=== PATIENT | male | born 1940 | race Caucasian/White ===

== ENCOUNTER 2020-04-18 08:35 | Outpatient (CLI) | payer MEDICARE, SELFPAY ==
--- NOTE | ~2020-04-18 | CT_ITS ---
EXAMINATION: CT foot RT wo con DATE: 04/18/2020 09:24 INDICATION: TECHNIQUE: High resolution computed tomography (CT) of the right foot was performed without intraveno us contrast. Automated exposure control and iterative reconstruction technique were employed. The dos e-length product was 975.02 mGy-cm. COMPARISON: None FINDINGS: Bone alignment is normal. No fracture. Minimal polyarticular osteoarthritis in the mid and forefoot. There is a mass with heterogeneous attenuation replacing the fat plantar to the base of the fifth met atarsal. The lesion which measures 2.7 cm proximal to distal, 2.6 cm medial collateral and 1.2 cm in dorsal to plantar thickness demonstrates a slightly higher attenuation peripheral rim with heterogene ous decreased central attenuation which nonetheless remains higher than simple fluid attenuation. The re is subtle irregularity to the underlying cortex which appears slightly more lucent suggesting deve loping shallow erosion with minimal adjacent periosteal reaction. No other masses or abnormal fluid c ollections identified. IMPRESSION: 1. 2.7 x 2.6 x 1.2 cm mass along the plantar base of the fifth metatarsal with subtle irregularity of the underlying cortex. It is unclear this represents a solid or complex cystic lesion with different ial including bursitis, gouty tophus, abscess, hematoma or neoplasm either benign or malignant. Could consider contrast-enhanced MRI to differentiate cystic from solid enhancing soft tissue although def initive determination may require biopsy. Reviewed, dictated and finalized at location A. IMPRESSION: 1. 2.7 x 2.6 x 1.2 cm mass along the plantar base of the fifth metatarsal with subtle irregularity of the underlying cortex. It is unclear this represents a s olid or complex cystic lesion with differential including bursitis, gouty tophu s, abscess, hematoma or neoplasm either benign or malignant. Could consider con trast-enhanced MRI to differentiate cystic from solid enhancing soft tissue alt mendel definitive determination may require biopsy.
== END 2020-04-18 08:36 | disposition home or self-care (01) ==
LOC: ANHIMG 08:44
PROVIDERS: PCP Internal Medicine; Visit Provider Podiatrist Foot & Ankle Surgery
DX: M79.89 Other specified soft tissue disorders (principal)
CPT/HCPCS: 73700

== ENCOUNTER 2020-05-01 08:50 | Outpatient (CLI) | payer MEDICARE, SELFPAY ==
--- NOTE | ~2020-05-01 | XR_ITS ---
EXAMINATION: XR hand RT min 3V DATE: 05/01/2020 09:07 INDICATION: Right hand pain. TECHNIQUE: 3 views of right hand were obtained. COMPARISON: None. FINDINGS: Scapholunate dissociation is noted. There is an old avulsion fracture of ulnar styloid with nonunion. There is mild osteoarthritis of triscaphe joint, first carpometacarpal joint, lunate-hamat e joint, first metacarpophalangeal joint, and most of the interphalangeal joints. There is severe ost eoarthritis of second and third metacarpophalangeal joints and second distal interphalangeal joint. IMPRESSION: 1. Scapholunate dissociation. 2. Polyarticular osteoarthritis. Reviewed, dictated and finalized at location A.
[2020-05-01 10:00] LABS: Uric Acid 6.8 mg/dL (3.5-8.5)
== END 2020-05-01 08:51 | disposition home or self-care (01) ==
PROVIDERS: PCP Internal Medicine; Visit Provider Internal Medicine
DX: M79.643 Pain in unspecified hand (principal); M19.041 Primary osteoarthritis, right hand; M89.9 Disorder of bone, unspecified
CPT/HCPCS: 36415; 73130; 84550

== ENCOUNTER 2020-09-28 09:05 | Outpatient (CLI) | payer MEDICARE, SELFPAY ==
--- NOTE | ~2020-09-28 | US_ITS ---
EXAMINATION: US abdomen complete EXAM DATE: 09/28/2020 10:01 INDICATION: R16.0 - Hepatomegaly, not elsewhere classified. TECHNIQUE: Multiple grayscale and Doppler images of the complete abdomen were obtained (by a technolo gist who performed the scan) and subsequently reviewed. There is no prior study for comparison. FINDINGS: There is mild abdominal aortic ectasia and scattered arterial sclerosis. Visualized portion IVC is patent. The pancreatic head and body are normal in appearance. The pancreatic tail is not visualiz ed. The liver has normal echogenicity and contour. There is a 15 cm right liver lobe exophytic mass, dif ferential diagnosis including hemangioma, adenoma, focal nodular hyperplasia, hepatocellular carcinom a, metastatic disease. There is no evidence of intrahepatic biliary duct dilation. Portal venous jeff w was seen in the hepatopedal, normal direction and has normal Doppler waveform. Common bile duct measures 9 mm, which is normal. Focal region along the posterior aspect of the gall bladder which did not appear to change on decubitus imaging, measuring about 1.3 cm in diameter by 4 mm in thickness. No pericholecystic fluid or cholelithiasis suspected. Right kidney: There is normal contour and echogenicity. It measures 9.6 x 5.4 x 5.5 centimeters. T here are no focal renal lesions identified. There is no hydronephrosis. Left kidney: There is normal contour and echogenicity. It measures 9.5 x 5.0 x 6.5 centimeters. Th ere are no focal renal lesions identified. There is no hydronephrosis. The spleen measures up to 16 cm, enlarged and also has heterogeneous echogenicity which could be due to mass or other infiltrative process such as metastatic disease or lymphoma. Infarction unlikely giv en splenomegaly rather than atrophy. IMPRESSION: 1. Large right liver lobe mass. 2. Enlarged, heterogeneous spleen suspected to have infiltrated process. 3. Small focal region of gallbladder wall thickening posteriorly, could be polyp or less likely chol angiocarcinoma. 4. Recommend CT abdomen and pelvis without and with contrast as initial workup for these findings. I left a message for Dr. 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 I alerted his office to review t his report, provided my phone number for call back with questions. Reviewed, dictated and finalized at location A. SE DRIVER IMPRESSION: 1. Large right liver lobe mass. 2. Enlarged, heterogeneous spleen suspected to have infiltrated process. 3. Small focal region of gallbladder wall thickening posteriorly, could be brittney yp or less likely cholangiocarcinoma. 4. Recommend CT abdomen and pelvis without and with contrast as initial workup for these findings. I left a message for Dr. 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 I alerted his office to review this report, provided my phone number for call back with yen vasquez.
== END 2020-09-28 09:06 | disposition home or self-care (01) ==
LOC: ANHIMG 09:07
PROVIDERS: Family Provider Internal Medicine; PCP Internal Medicine; Visit Provider Internal Medicine
DX: R16.0 Hepatomegaly, not elsewhere classified (principal); R16.1 Splenomegaly, not elsewhere classified; R93.89 Abnormal findings on diagnostic imaging of other specified body structures
CPT/HCPCS: 76700

== ENCOUNTER 2020-10-04 12:48 | Outpatient (CLI) | payer MEDICARE, SELFPAY ==
--- NOTE | ~2020-10-04 | CT_ITS ---
EXAMINATION: CT abdomen pelvis wo/w con DATE: 10/04/2020 14:01 INDICATION: Hepatomegaly TECHNIQUE: Computed tomography (CT) of the abdomen and pelvis was performed with 100 cc Omnipaque 350 intravenous contrast. Automated exposure control and iterative reconstruction technique were employe d. Exam dose: 1217.11 mGy-cm total exam DLP. COMPARISON: 09/28/2020 complete abdominal ultrasound FINDINGS: There is left basilar lower lobe atelectasis. The lung bases are otherwise clear. No pleural effusion. Normal heart size. Right atrial and ventricular leads. Coronary artery calcifications. Status post sternotomy. Multiple small dependent gallstones. No gallbladder wall thickening or pericholecystic fluid collect ion. No hepatic space occupying mass lesion. But there are very large bilateral adrenal heterogeneous mas ses, measuring up to 16 cm on the right, 11 cm on the left. The right adrenal mass would be amenable to CT guided percutaneous needle biopsy. There are multiple hepatic space occupying masses. There are peritoneal masses consistent with peritoneal carcinomatosis, including two measuring up to 2 cm in the left upper quadrant. No renal mass lesion or hydronephrosis. There is extensive calcification of the abdominal aorta and celiac and superior mesenteric arteries a nd at origins of renal arteries. There is left upper quadrant mesenteric adenopathy. Prominent degenerative changes of the thoracic and lumbar spine. IMPRESSION: Very large adrenal masses, likely metastatic; consider CT guided right adrenal biopsy Peritoneal carcinomatosis Multiple splenic masses, likely metastatic Mesenteric lymphadenopathy Cholelithiasis Reviewed, dictated and finalized at [facility]. Reviewed, dictated and finalized at location A. 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
[2020-10-04 13:47] LABS: Estimated Glomerular Filt Rate > 60
== END 2020-10-04 12:49 | disposition home or self-care (01) ==
LOC: ANHIMG 12:50
PROVIDERS: PCP Internal Medicine; Visit Provider Internal Medicine
DX: R16.0 Hepatomegaly, not elsewhere classified (principal); D73.9 Disease of spleen, unspecified; C78.6 Secondary malignant neoplasm of retroperitoneum and peritoneum; R16.1 Splenomegaly, not elsewhere classified; R59.0 Localized enlarged lymph nodes; K80.20 Calculus of gallbladder without cholecystitis without obstruction
CPT/HCPCS: 74178; Q9967

== ENCOUNTER → 2020-10-16 00:25 | Outpatient (CLI) | payer MEDICARE, SELFPAY ==
[2020-10-16 21:19] LABS: SARS-CoV-2 RNA PCR Negative
== END ==
PROVIDERS: PCP Internal Medicine; Visit Provider Internal Medicine
DX: Z01.812 Encounter for preprocedural laboratory examination (principal); Z20.822 Contact with and (suspected) exposure to COVID-19
CPT/HCPCS: C9803; U0003; U0005

== ENCOUNTER 2020-10-19 08:27 | Outpatient (CLI) | payer MEDICARE, SELFPAY ==
[2020-10-15 12:05] VITALS: BMI 25.1
[2020-10-19] VITALS (11 sets, daily range): BP systolic 104–130; BP diastolic 55–75; PULSE 65–88; RESP 18; O2SAT 99–100
--- NOTE | ~2020-10-19 | CT_ITS ---
EXAMINATION: CT biopsy abdomen percutaneous DATE: 10/19/2020 12:03 INDICATION: Bilateral adrenal, splenic and mesenteric masses concerning for metastatic disease. TECHNIQUE: The procedure including the risks and benefits was discussed with the patient. Risks discu ssed included bleeding and infection. The patient understood the risks and agreed to proceed. The sk in overlying the left thoracolumbar paraspinal region was prepped and draped in usual sterile fashion . Anesthetic was administered with 1% lidocaine subcutaneously. A 16 gauge outer needle was advance d under CT guidance to the lesion of interest. An 18 gauge core biopsy needle was then advanced into the lesion. 4 core biopsy specimens were obtained. The outer needle was removed and the entry site wa s cleaned and dressed. There were no immediate complications. The dose-length product was 160.56 mGy -cm. FINDINGS: CT images demonstrate the outer needle tip at the periphery of the a 10.3 cm left adrenal m ass. There is also marked masslike enlargement of the contralateral right adrenal gland as well as ma sses in the spleen and along the anterior small bowel mesentery in the right abdomen, all concerning for metastatic disease. IMPRESSION: 1. Successful CT-guided biopsy of a likely metastatic 10.3 cm left adrenal mass. Reviewed, dictated and finalized at location A. L DIVER IMPRESSION: 1. Successful CT-guided biopsy of a likely metastatic 10.3 cm left adrenal mass .
[2020-10-19 09:04] LABS: Basophils Absolute Auto 0.1 K/mm3 (0.0-0.1); Basophils Percent Auto 0.6 % (0.2-1.2); Eosinophils Absolute Auto 0.6 K/mm3 (0-0.3); Eosinophils Percent Auto 4.7 % (0-4.4); Hematocrit 32.1 % (42.0-52.0); Hemoglobin 10.5 g/dL (14.0-18.0); Immature Granulocyte Absolute 0.16 K/mm3 (0.00-0.031); Immature Granulocyte Percent A 1.2 % (0-0.5); Lymphocytes Absolute Auto 2.11 K/mm3 (0.9-3.2); Lymphocytes Percent Auto 15.6 % (18.3-44.2); Mean Corpuscular HGB Conc 32.7 g/dl (32-36); Mean Corpuscular Hemoglobin 28.2 pg (26-34); Mean Corpuscular Volume 86.3 fl (80-100); Mean Platelet Volume 8.5 fl (7.4-10.4); Monocytes Absolute Auto 1.4 K/mm3 (0.1-0.6); Monocytes Percent Auto 10.1 % (2.6-8.5); Neutrophils Absolute Auto 9.2 K/mm3 (1.3-6.7); Neutrophils Percent Auto 67.8 % (45.5-73.1); Platelet Count Result 295 k/mm3 (150-375); Red Blood Count 3.72 M/mm3 (4.6-6.20); Red Cell Distribution Width 15.3 % (11.5-14.5); White Blood Count 13.5 K/mm3 (4.5-10.0)
[2020-10-19 09:14] LABS: INR 1.1; Prothrombin Time 14.4 Seconds (11.1-14.7)
[2020-10-19 12:33] LABS: Glucose Point of Care 95 (65-105)
== END 2020-10-19 16:23 | disposition home or self-care (01) ==
PROVIDERS: Radiology Diagnostic Radiology; PCP Internal Medicine; Visit Provider Internal Medicine
DX: C79.72 Secondary malignant neoplasm of left adrenal gland (principal)
CPT/HCPCS: 36415; 49180; 77012; 82948; 85025; 85610; 88305; 88313; 88342

== ENCOUNTER 2021-07-12 09:13 | Emergency (ER) | payer MEDICARE, SELFPAY ==
--- NOTE | ~2021-07-12 | XR_ITS ---
XR chest 2V 07/12/2021 10:10 Indication: Generalized weakness and dizziness Procedure: 2 view chest Comparison: 10/27/2005 Findings: Status post median sternotomy for CABG. Cardiomegaly. Pacemaker leads in expected position. Elevated left diaphragm. Small left pleural effusion. Bibasilar atelectasis. Impression: 1: Bibasilar atelectasis with chronically elevated left diaphragm. 2: Small left pleural effusion. 3: Cardiomegaly. Reviewed, dictated and finalized at location A. 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 2: Small left pleural effusion. 3: Cardiomegaly.
[2021-07-12 09:26] VITALS: BP 144/77; PULSE 66; RESP 28; TEMP 36.5; O2SAT 100
[2021-07-12 09:29] VITALS: PULSE 66
--- NOTE | 2021-07-12 09:34 | ECG_ITS ---
Measurements Intervals [place] Rate: 60 P: [place]: 0 QRS: 87 QRSD: 161 T: -3 QT: 462 QTc: 462 Interpretive Statements ELECTRONIC VENTRICULAR PACEMAKER BASELINE ARTIFACT- I, III, AVL, AVF, V1, V4-V6 NO FURTHER INTERPRETATION IS POSSIBLE ATYPICAL ECG Electronically Signed On 07-12-2021 15:41:08 [employer] by Chase Morrell D.O.
[2021-07-12 09:42] LABS: Basophils Absolute Auto 0.1 K/mm3 (0.0-0.1); Basophils Percent Auto 0.7 % (0.2-1.2); Eosinophils Absolute Auto 0.2 K/mm3 (0-0.3); Hematocrit 37.4 % (42.0-52.0); Immature Granulocyte Absolute 0.46 K/mm3 (0.00-0.031); Immature Granulocyte Percent A 4.3 % (0-0.5); Lymphocytes Absolute Auto 2.07 K/mm3 (0.9-3.2); Lymphocytes Percent Auto 19.4 % (18.3-44.2); Mean Corpuscular HGB Conc 32.1 g/dl (32-36); Mean Corpuscular Hemoglobin 30.8 pg (26-34); Mean Corpuscular Volume 95.9 fl (80-100); Mean Platelet Volume 8.5 fl (7.4-10.4); Monocytes Absolute Auto 0.8 K/mm3 (0.1-0.6); Monocytes Percent Auto 7.1 % (2.6-8.5); Neutrophils Absolute Auto 7.1 K/mm3 (1.3-6.7); Neutrophils Percent Auto 66.5 % (45.5-73.1); Platelet Count Result 192 k/mm3 (150-375); White Blood Count 10.7 K/mm3 (4.5-10.0)
--- NOTE | 2021-07-12 09:47 | ED.GENADULT ---
HPI - General Adult General Chief complaint: Weakness Stated complaint: weakness Time Seen by Provider: 07/12/21 09:44 Source: patient, family and RN notes reviewed Mode of arrival: ambulatory Limitations: no limitations History of Present Illness HPI narrative: Patient presents with general weakness and hard to urinate in the last few days. Patient reports dribbling of urine. Patient denies any fever, chills, nausea, vomiting, chest pain, shortness of breath, abdominal pain. Status post immunotherapy 2 weeks ago for melanoma. Recently diagnosed of melanoma October 2020. Related Data Home Medications Medication Instructions Recorded Confirmed apixaban 5 mg tablet 5 mg PO BID 09/21/19 02/06/21 aspirin 81 mg tablet,delayed 81 mg PO DAILY 09/21/19 02/06/21 release B-complex with vitamin C 1 tablet PO DAILY 04/12/21 hydrocortisone 20 mg tablet 40 mg PO DAILY tablet 04/12/21 levothyroxine 25 mcg capsule 25 mcg PO BID cap 04/12/21 sodium chloride 1 gram tablet 3,000 mg PO DAILY tablet 04/12/21 Allergies Allergy/AdvReac Type Severity Reaction Status Date / Time No Known Allergies Allergy Mild Verified 07/12/21 09:33 Review of Systems Review of Systems: CONSTITUTIONAL: Denies fever, chills, or sweats. EYES: Denies visual changes, redness, or discharge. ENT: Denies rhinorrhea, congestion, sore throat, or otalgia. CARDIOVASCULAR: Denies chest pain, palpitations, or edema. RESPIRATORY: Denies cough or dyspnea. GASTROINTESTINAL: Denies abdominal pain, nausea, vomiting, or diarrhea. GENITOURINARY: Denies dysuria or hematuria. SKIN: Denies rash or itching. MUSCULOSKELETAL: Denies back pain, joint pain, or myalgia. NEUROLOGIC: Denies headache, numbness, or weakness. PSYCHIATRIC: Denies anxiety or depression. [facility] Family History Family History Mother Family history of premature coronary heart disease Cerebrovascular accident, Onset Age: 70 Patient's mother is Father Family history of premature coronary heart disease, Onset Age: 55 Patient's father is Acute myocardial infarction Other Hypertension Social History Social History Smoking packs per day: 0.5 Smoking cigarettes per day: 10.0 Years smoked: 15 Smoking pack-years: 7.50 Smoking status: Former smoker Tobacco type: cigarettes Second hand tobacco smoke exposure: Yes Smoking end date: 08/31/79 Alcohol intake: never Exam Narrative: General appearance: Well-developed, well-nourished Skin: Normal color Head: Normocephalic, nontraumatic Eyes: Clear conjunctiva ENT: Oropharynx normal, ears normal, nose normal Neck: Supple, nontender Chest and respiratory: Airway patent, no respiratory distress, no accessory muscle use Heart: Regular rate/rhythm Abdomen: Soft, nontender, no organomegaly, quiet bowel sounds Vascular: Normal peripheral pulses, normal capillary refill. 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 Rowland. Place Jonas catheter, see me in the office in 1 week Date: 07/12/21 Time: 12:22 Vital Signs Vital signs: Vital Signs Temperature 36.5 C 07/12/21 09:26 Pulse Rate 66 07/12/21 09:26 Respiratory Rate 28 H 07/12/21 09:26 Blood Pressure 144/77 H 07/12/21 09:26 Pulse Oximetry 100 07/12/21 09:26 Temperature 36.5 C 07/12/21 09:26 Pulse Rate 60 07/12/21 11:48 Respiratory Rate 16 07/12/21 11:48 Blood Pressure 155
[2021-07-12 09:51] LABS: Alanine Aminotransferase 21 U/L (4-50); Albumin Level 3.6 g/dL (3.5-5.1); Alkaline Phosphatase 53 U/L (38-126); Anion Gap 6 mmol/L (8-16); Aspartate Amino Transferase 25 U/L (17-59); Bilirubin,Total 0.7 mg/dL (0.2-1.3); Blood Urea Nitrogen 33 mg/dL (9-20); Calcium 8.5 mg/dL (8.4-10.2); Carbon Dioxide 29 mmol/L (22-30); Chloride 98 mmol/L (98-107); Estimated CRCL calculation 46 ml/min; Estimated Glomerular Filt Rate > 60; Glucose 95 mg/dL (65-110); Sodium 133 mmol/L (137-145)
[2021-07-12 11:11] LABS: Add Urine Microscopic? NO; Appearance Urine Clear (Clear); Bilirubin Urine Negative (Negative); Blood Urine Negative (Negative); Color Urine Yellow (Yellow); Glucose Urine UA Negative (Negative); Ketones Urine Negative (Negative); Leukocyte Esterase Ur Negative LEU/UL (Negative); Nitrate Urine Negative (Negative); Protein Urine Negative (Negative); Urobilinogen Urine Negative mg/dL (<2.0)
[2021-07-12 11:12] LABS: Specific Grav Ur 1.004 (1.001-1.035)
[2021-07-12 11:48] VITALS: BP 155/78; PULSE 60; RESP 16; O2SAT 99
[2021-07-12] MEDS: LIDOCAINE HCL 2% GEL UROJET 10 ML PKG (12:30)
[2021-07-12 12:56] VITALS: BP 116/83; PULSE 59; RESP 16; O2SAT 99
== END 2021-07-12 12:57 | disposition home or self-care (01) ==
PROVIDERS: Emergency Provider Emergency Medicine; PCP Internal Medicine
DX: N40.1 Benign prostatic hyperplasia with lower urinary tract symptoms (principal); R33.8 Other retention of urine; R53.1 Weakness; Z79.82 Long term (current) use of aspirin; Z79.01 Long term (current) use of anticoagulants; Z87.891 Personal history of nicotine dependence
CPT/HCPCS: 36415; 51702; 71046; 80053; 81003; 85025; 93005; 99283

== ENCOUNTER 2021-07-13 14:21 | Emergency (ER) | payer MEDICARE, SELFPAY ==
[2021-07-13 14:46] VITALS: BP 154/76; PULSE 60; RESP 18; TEMP 36.7; O2SAT 100
--- NOTE | 2021-07-13 14:58 | PC.NURSE ---
Pt output 800ml clear yellow urine, new bag attached, pt states he feels relief
--- NOTE | 2021-07-13 15:03 | ED.MALEGU ---
HPI - Male Genitourinary General Chief complaint: Urogenital-Male Stated complaint: catheter issues Time Seen by Provider: 07/13/21 14:28 Source: patient and family Mode of arrival: ambulatory Limitations: no limitations History of Present Illness HPI Narrative: 80-year-old male Here because of no drainage from his Jonas catheter since sometime last night He was seen in the ED yesterday and a new Jonas placed for urinary retention and he was sent home with a leg bag However overnight essentially nothing has come out and he is now getting uncomfortably distended Related Data Home Medications Medication Instructions Recorded Confirmed apixaban 5 mg tablet 5 mg PO BID 09/21/19 02/06/21 aspirin 81 mg tablet,delayed 81 mg PO DAILY 09/21/19 02/06/21 release B-complex with vitamin C 1 tablet PO DAILY 04/12/21 hydrocortisone 20 mg tablet 40 mg PO DAILY tablet 04/12/21 levothyroxine 25 mcg capsule 25 mcg PO BID cap 04/12/21 sodium chloride 1 gram tablet 3,000 mg PO DAILY tablet 04/12/21 Allergies Allergy/AdvReac Type Severity Reaction Status Date / Time No Known Allergies Allergy Mild Verified 07/12/21 09:33 Review of Systems Review of Systems: All systems reviewed & are unremarkable except as noted in HPI and below Constitutional: Constitutional: Denies chills, Reports fatigue, Denies fever(s), Denies headache(s) and Reports weakness ENT: Denies headache(s) Cardiovascular: Cardiovascular: Denies dyspnea Gastrointestinal: Gastrointestinal: Reports abdominal pain, Denies diarrhea and Denies vomiting Genitourinary: Genitourinary: Reports oliguria, Denies dysuria and Denies urinary frequency Musculoskeletal: Musculoskeletal: Reports myalgias, Denies deformity and Denies numbness Integumentary/Breasts: Skin/Breast: Denies wounds PMFSH Family History Family History Mother Family history of premature coronary heart disease Cerebrovascular accident, Onset Age: 70 Patient's mother is Father Family history of premature coronary heart disease, Onset Age: 55 Patient's father is Acute myocardial infarction Other Hypertension Social History Social History Smoking packs per day: 0.5 Smoking cigarettes per day: 10.0 Years smoked: 15 Smoking pack-years: 7.50 Smoking status: Former smoker Tobacco type: cigarettes Second hand tobacco smoke exposure: Yes Smoking end date: 08/31/79 Alcohol intake: never Exam Const: General: cooperative and no acute distress Orientation/consciousness: patient oriented x3 (alert) HENMT: Head: normal to inspection, normocephalic and atraumatic Ears: external ears normal General nose exam: no epistaxis Eyes: Conjunctivae: conjunctivae normal EOM: EOMs intact bilaterally Neck: Neck: normal visual inspection, supple and no JVD Resp: Effort & Inspection: normal respiratory effort and not labored Auscultation: other (BS =) GI: GI Palp: Yes Soft to palpation and Yes Tenderness to palpation present (GI) Other: Suprapubic tenderness and palpably distended bladder Urinary Catheter: Urinary Catheter: other (Catheter is present but it was connected to the leg bag with the blue cap still covering the Basil tree connector, effectively sealing the Jonas effectively sealing the Jonas) Skin: General skin exam: normal color and no rashes or lesions noted Neuro: General: patient oriented x3 (alert) and moves all extremities Speech: normal speech Extrem: General: normal to inspection and no pedal edema Psych: Affect: normal affect Course Vital Signs Vital signs: Vital Signs Temperature 36.7 C 07/13/21 14:46 Pulse Rate 60 07/13/21 14:46 Respiratory Rate 18 07/13/21 14:46 Blood Pressure 154/76 H 07/13/21 14:46 Pulse Oximetry 100 07/13/21 14:46 Temperature 36.7 C 07/13/21 14:46 Pulse Rate 60
[2021-07-13 16:00] VITALS: BP 131/71; PULSE 62; RESP 16; O2SAT 99
[2021-07-13 16:30] VITALS: BP 148/70; PULSE 60; RESP 16; O2SAT 100
--- NOTE | 2021-07-13 17:00 | PC.NURSE ---
Pt output 1400 clear,yellow urine, pt denies pain, new leg bag applied
[2021-07-13 17:09] VITALS: BP 137/70; PULSE 62; RESP 16; O2SAT 100
== END 2021-07-13 17:12 | disposition home or self-care (01) ==
PROVIDERS: Emergency Provider Emergency Medicine; PCP Internal Medicine
DX: T83.091A Other mechanical complication of indwelling urethral catheter, initial encounter (principal); Z87.891 Personal history of nicotine dependence
CPT/HCPCS: 99282